=== PATIENT | female | born 1965 | race Two or more races ===

== ENCOUNTER 2023-06-14 22:24 | Emergency (ER) | payer OTHER ==
[~2023-06-14] VITALS: Ht 152.4 cm; Wt 80.7 kg
== END 2023-06-14 23:57 | disposition home or self-care (01) ==
LOC: ER 22:25 → EDBD 22:25 → ER 22:53
DX: M79.601 Pain in right arm (principal); Z88.8 Allergy status to other drugs, medicaments and biological substances